=== PATIENT | male | born 1995 | race Caucasian/White ===

== ENCOUNTER 2025-08-01 06:22 | Day surgery (SDC) | payer BC, SELFPAY | END 2025-08-01 13:49 | disposition home or self-care (01) | LOC: GI 06:22 | PROVIDERS: ATTENDING PHYSICIAN Internal Medicine | DX: K52.9 Noninfective gastroenteritis and colitis, unspecified (principal); K64.8 Other hemorrhoids; K51.40 Inflammatory polyps of colon without complications; K63.5 Polyp of colon | CPT/HCPCS: 45385; 45380; 88305 ==